=== PATIENT | female | born 2000 | race Two or more races ===

== ENCOUNTER 2021-07-01 02:38 | Emergency (ER) | payer OTHER ==
[~2021-07-01] VITALS: Ht 180.3 cm; Wt 105.7 kg
== END 2021-07-01 11:43 | disposition home or self-care (01) ==
LOC: ER 02:38
DX: N93.9 Abnormal uterine and vaginal bleeding, unspecified (principal); R09.81 Nasal congestion; R00.2 Palpitations

== ENCOUNTER → 2023-08-25 | Emergency (ER) | payer OTHER ==
[~2023-08-25] VITALS: Ht 180.3 cm; Wt 95.3 kg
[~2023-08-25] MED LIST: QC TUSSIN DM L118 ML PO
[2023-08-25 16:22] LABS: HEMATOCRIT 40.5 % (36.0-45.00); HEMOGLOBIN 13.3 g/dL (12.0-15.00); MEAN CELL VOLUME 85.8 fL (80.00-100.00); MEAN CORPUSCULAR HEMOGLOBIN 28.2 pg (27.00-32.0); MEAN CORPUSCULAR HGB CONC 32.9 g/dl (32.0-36.0); PLATELET COUNT 200 K/uL (150-450); RED BLOOD COUNT 4.72 M/uL (4.00-6.00); RED CELL DISTRIBUTION WIDTH 13.1 % (11.5-14.5)
== END | disposition home or self-care (01) ==
LOC: ER 12:11
PROVIDERS: Nurse Practitioner Family
DX: J00 Acute nasopharyngitis [common cold] (principal); Z20.822 Contact with and (suspected) exposure to COVID-19

== ENCOUNTER 2024-03-03 23:59 | Emergency (ER) | payer OTHER ==
[~2024-03-03] VITALS: Ht 182.9 cm; Wt 89.4 kg
[2024-03-04] MEDS ORDERED: KETOROLAC TROMETHAMINE 60 MG VIAL IM ONE ×2 (01:59→02:00)
[2024-03-04] MEDS ORDERED: DICLOFENAC SODI75 MG PO (02:03)
== END 2024-03-04 02:17 | disposition home or self-care (01) ==
LOC: ER 03-04
DX: M25.561 Pain in right knee (principal)

== ENCOUNTER 2024-10-31 12:16 | Emergency (ER) | payer OTHER ==
[~2024-10-31] VITALS: Ht 182.9 cm; Wt 98.4 kg
[~2024-10-31 12:16] MED LIST changes: +DICLOFENAC SODI75 MG PO
[2024-10-31 12:34] VITALS: BP 114/77; O2SAT 97
[2024-10-31] MEDS ORDERED: ABILIFY5 MG (12:36)
[2024-10-31] MEDS ORDERED: BUSPIRONE HCL7.5 MG (12:37)
[2024-10-31] MEDS ORDERED: VENLAFAXINE HCL75 M1 (12:37)
[2024-10-31] MEDS ORDERED: KETOROLAC TROMETHAMINE 60 MG VIAL IM STA (13:12)
== END 2024-10-31 14:12 | disposition home or self-care (01) ==
LOC: ER 12:19
DX: S92.531A Displaced fracture of distal phalanx of right lesser toe(s), initial encounter for closed fracture (principal); X58.XXXA Exposure to other specified factors, initial encounter; Y93.89 Activity, other specified; Y92.89 Other specified places as the place of occurrence of the external cause; Y99.9 Unspecified external cause status